=== PATIENT | female | born 1970 | race Caucasian/White ===

== ENCOUNTER 2019-02-23 19:51 | Emergency (ER) | payer OTHER, SELFPAY ==
[2019-02-23 19:52] VITALS: BP 170/115; PULSE 97; RESP 18; TEMP 36.7; O2SAT 100; BMI 31.4
--- NOTE | 2019-02-23 20:01 | EKG12_ITS ---
Test Reason : CP Blood Pressure : / mmHG Vent. Rate : 087 BPM Atrial Rate : 087 BPM P-R Int : 174 ms QRS Dur : 092 ms QT Int : 366 ms P-R-T Axes : 059 026 050 degrees QTc Int : 440 ms Normal sinus rhythm Normal ECG Confirmed by GEORGE THORNTON, LAYLA ([id number]), image editor JENNIFER JOHNSON ([id number]) on 02/27/2019 11:48:15 AM Referred By: Confirmed By:ABNER VAZQUEZ MD
--- NOTE | 2019-02-23 20:06 | ED.VISSUMM ---
- ER Visit Summary Date of Service: 02/23/19 Chief Complaint: Upper back pain, abdominal pain, nausea History of Present Illness: The patient is a 49 F presents to the emergency department multiple complaints. Patient states over the past few weeks, she is had some pain in her left shoulder. She states that it is almost a burning pain down her arm. Over the past 2 or 3 days, she had midepigastric abdominal pain. She states every time she eats, the pain comes on. Today, she felt mildly short of breath with the pain. She denies any history of coronary vascular disease. The patient does have a history of hypertension, but is not on any medication. She states she supposed to take medication, but does not see a doctor. There is a family history of heart disease. She denies any fevers or chills. She denies any cough. She has not taken anything for the pain. Physical Examination: Vital signs reviewed General: Well-nourished, well-developed Head: Normocephalic, atraumatic Eyes: Pupils equal and reactive, extraocular muscles intact Neck, supple, no lymphadenopathy Heart: Regular rate and rhythm Respiratory: No distress, clear bilaterally Abdomen: Soft, nontender, nondistended, no peritoneal signs Back: Nontender Extremities: Nontender, no edema, no cords Skin: Normal color no rash Neuro: Alert and oriented, no focal or lateralizing deficits Test Results: [] Emergency Department Course and Treatment: EKG was obtained on patient arrival. There is no evidence of acute ischemia. I obtained a d-dimer which was also negative. Cardiac enzymes are normal. The patient has pain when she eats. She does have reproducible epigastric pain. She also has burning down her arm which she is actually had for more than 6 months. I do suspect that her symptoms are multifactorial. She has untreated hypertension because she has not followed with her primary care since moving back to the area. The patient was given a GI cocktail and had resolution of her epigastric and chest pain. She states she is been taking more ibuprofen for her headaches and neck pain. I do suspect that she may have some underlying gastritis causing the symptoms. I am going to resume the patient on hydrochlorothiazide for her blood pressure and had Pepcid to her regimen. The patient has a heart score of 2. She has a normal EKG. She has normal cardiac enzymes. She has no evidence of enlarged mediastinum and normal pulses of her upper extremities. I do feel that she is safe for outpatient. Treatment Plan: [] Disposition: Discharge Impression: 1. Cervical radiculopathy 2. Hypertension 3. Gastritis This note was generated with [employer] dictation software. It may contain incorrect words, spelling, and punctuation that were not noted in review of the chart prior to signing ED Disposition - Plan for ED Patient: Disposition: Home or Assisted Living Instructions: HYPERTENSION, New (Begin Treatment), GASTRITIS vs. ULCER Prescriptions: Hydrochlorothiazide [Hctz] 25 mg PO DAILY #30 tab Prescription Printed Famotidine [Pepcid] 20 mg PO BID #28 tab Prescription Printed Referrals: Saman Mtz MD [STAFF PHYSICIAN] -
[2019-02-23 20:10] VITALS: PULSE 93; RESP 18; O2SAT 99
[2019-02-23 20:11] VITALS: BP 192/107
[2019-02-23 20:21] LABS: Absolute Lymphocyte Count 2.75 X10^3/ul (0.83-4.51); Absolute Neutrophil Count 5.7 X10^3/uL (2.0-7.7); Basophil# 0.03 X10^3/uL; Basophil% 0.3 % (0-1); Eosinophil# 0.09 X10^3/uL; Hematocrit 40.9 % (37-47); Hemoglobin 12.6 g/dl (12.0-15.0); Lymphocyte # 2.75 X10^3/ul (4.0); Mean Corp Hgb Conc 30.8 g/gl (32-36); Mean Corpuscular Hgb 25.1 pg (27.0-32.0); Mean Corpuscular Volume 81.6 fL (81-99); Mean Platelet Vol. 10.7 fl (6.2-12.0); Monocyte# 0.56 X10^3/uL; Monocyte% 6.1 % (0-10); Neutrophil # 5.74 X10^3/uL (2.7-7.7); Neutrophil % 62.5 % (47-70); Platelet Count 180 K/mm3 (150-450); RBC Distribution Width CV 17.3 % (11.6-14.6); RBC Distribution Width SD 51.6 fl (35.1-43.9); Red Blood Count 5.01 M/mm3 (4.2-5.4); White Blood Count 9.2 K/mm3 (4.4-11.0)
[2019-02-23 20:23] LABS: POSITIVE COUNT NO; POSITIVE DIFFERENTIAL NO; POSITIVE MORPHOLOGY NO
[2019-02-23 20:23] LABS: Bacteria 0 SEEN /hpf (None Seen); Mucous, Urine 0 SEEN /hpf (<or=2+); White Blood Cells 0 SEEN /hpf (0-5)
[2019-02-23 20:33] LABS: D-Dimer Quantitative (DVT/PE) 0.48 FEU/ug/m (0.27-0.49)
[2019-02-23 20:42] LABS: ALB/GLOB Ratio 1.2 RATIO (0.9-2.4); AST(SGOT) 19 U/L (15-37); Alanine Aminotransfer ALT/SGPT 27 U/L (13-56); Albumin, Serum 3.8 g/dL (3.2-5.0); Alkaline Phosphatase 81 U/L (45-117); Anion Gap 6 (5-15); BUN 21 mg/dL (7-18); BUN/Creat Ratio 21.6 RATIO (10-20); Calcium,Total 8.8 mg/dL (8.5-10.1); Chloride 111 mmol/L (98-107); Creatinine, Serum 0.97 mg/dL (0.55-1.02); EST Glomerular Filtration Rate 65 mL/min (>60); Est Glom Filt Rate - Afr Amer 78 mL/min (>60); Estimated Creatinine Clearance 70.77 ml/min; Globulin 3.2 g/dL (2.2-4.2); Glucose 97 mg/dL (74-106); Lipase 214 U/L (73-393); Potassium 4.1 mmol/L (3.5-5.1); Sodium Level 142 mmol/L (136-145)
[2019-02-23] MEDS: Ondansetron 4 MG/2 ML Vial IV (20:45)
[2019-02-23] MEDS: 0.9% Normal Saline 1,000 ML 1000 ML IV (20:45)
[2019-02-23] MEDS: Ketorolac 15 MG/ML Vial IV (20:46)
--- NOTE | 2019-02-23 20:50 | RAD_ITS ---
STUDY: X-RAY CHEST REASON FOR EXAM: Female, 49 years old. Left arm pain and upper back pain x2 days TECHNIQUE: PA and lateral views of the chest. COMPARISON: Prior study of 08/20/2016 FINDINGS: media monitor leads are present. The lungs are clear and expanded. There is no demonstrated pleural abnormality. Normal size heart. Normal mediastinum and christophe. Normal visualized pulmonary arteries. Normal visualized aortic arch and descending thoracic aorta. Normal visualized thoracic spine. Normal visualized ribs, clavicles, and shoulders. There is no demonstrated abnormality of the visualized soft tissue structures of the upper abdomen. RAD/Chest PA and Lateral IMPRESSION: Normal x-ray examination of the chest. Electronically Signed: Rudy Ramsey MD at 21:37 EDT , Service support ,
[2019-02-23 20:53] LABS: Internal QC Validated? YES +Cl - CLEAR BKGD; Pregnancy, Urine Negative Negative
[2019-02-23 20:55] LABS: Color, Urine Yellow (Yellow); Glucose, Dipstick Normal (Normal); Ketone-Dipstick Negative (Negative); Leukocyte Esterase-Dipstick Negative /ul (Negative); Nitrite-Dipstick Negative (Negative); Occult Blood-Urine 10 /ul (Negative); Protein-Dipstick Negative (Negative); Urine Bilirubin Dipstick Negative (Negative); Urine Clarity Sl. Cloudy (Clear); Urine Urobilinogen Normal (Normal); Urine pH 6.5 (5.0 - 8.0)
[2019-02-23 21:00] LABS: Red Blood Cells-Urine 0-5 SEEN /hpf (0-5)
[2019-02-23 21:01] LABS: Squamous Epithelial Cells - UA 0-5 SEEN /hpf (5-10)
[2019-02-23] MEDS: Mag Hydrox/Al Hydrox/Simeth 30 ML UDC PO (21:32)
[2019-02-23 21:46] VITALS: BP 176/101; PULSE 102; RESP 19; O2SAT 99
[2019-02-23 21:56] VITALS: BP 176/101; PULSE 88; RESP 18; O2SAT 97
== END 2019-02-23 22:04 | disposition home or self-care (01) ==
LOC: ED 20:29
PROVIDERS: Emergency Provider Emergency Medicine
DX: M54.12 Radiculopathy, cervical region (principal); I10 Essential (primary) hypertension; K29.70 Gastritis, unspecified, without bleeding
CPT/HCPCS: 71046; 80053; 81001; 81025; 83690; 84484; 85025; 85379; 93005; 96361; 96374; 96375; 99284; J7030; A4216; J2405